=== PATIENT | male | born 1980 | race Caucasian/White ===

== ENCOUNTER 2017-01-14 01:10 | Emergency (ER) | payer SELFPAY ==
[2017-01-14 01:30] LABS: HEMATOCRIT 48.6 % (42.0-52.0); HEMOGLOBIN 16.4 gm/dl (14.0-18.0); MEAN CELL VOLUME 90.2 fl (81-97); MEAN CORPUSCULAR HEMOGLOBIN 30.4 pg (27-33); MEAN CORPUSCULAR HGB CONC 33.7 g/dl (32-36); PLATELET COUNT 303 K/uL (130-400); RED BLOOD COUNT 5.39 M/uL (4.40-5.70); RED CELL DISTRIBUTION WIDTH 12.9 % (11.5-14.5); WHITE BLOOD COUNT W/O DIFF 10.2 K/uL (4.2-12.2)
[2017-01-14 01:33] LABS: ALB/GLOB RATIO 1.3 (1.1-1.8); ALBUMIN 4.8 gm/dL (3.5-5.0); ALKALINE PHOSPHATASE 76 U/L (38-126); ALT/SGPT 91 U/L (21-72); ANION GAP 14.5 (7-16); AST/SGOT 93 U/L (17-59); BILIRUBIN,TOTAL 0.57 mg/dL (0.2-1.3); BLOOD UREA NITROGEN 13 mg/dL (9-20); CARBON DIOXIDE 21.5 mmol/L (22-30); CREATINE PHOSPHOKINASE 175 U/L (55-170); EST GLOMERULAR FILTRATION RATE > 60 ml/min; GLUCOSE,RANDOM 143 mg/dL (70-110); TOTAL PROTEIN 8.5 gm/dL (6.3-8.2)
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
[2017-01-14] MEDS ORDERED: 0.9 % SODIUM CHLORIDE 1,000 ML BAG IV ONE (03:19)
[2017-01-14] MEDS ORDERED: CEFAZOLIN 1 Gram 1 GM/50 ML BAG IVPB ONE (03:37)
[2017-01-14] MEDS ORDERED: TOPICAL LIDOCAINE W/ EPI 5 ML TOP ONE (03:43)
[2017-01-14] MEDS ORDERED: ONDANSETRON HCL IV 4 MG/2 ML VIAL IVP ONE (03:56)
[2017-01-14] MEDS ORDERED: HYDROMORPHONE HCL 1 MG/ML CPJ IVP ONE (03:56)
[2017-01-14 05:12] LABS: URINE APPEARANCE CLEAR; URINE BILIRUBIN NEGATIVE (NEGATIVE); URINE BLOOD MODERATE (NEGATIVE); URINE COLOR YELLOW; URINE GLUCOSE (UA) NEGATIVE (NEGATIVE); URINE KETONE TRACE (NEGATIVE); URINE LEUKOCYTE ESTERASE NEGATIVE (NEGATIVE); URINE NITRITE NEGATIVE (NEGATIVE); URINE PROTEIN TRACE (NEGATIVE); URINE UROBILINOGEN 0.2 E.U./dL (0.20 - 1.00)
[2017-01-14 05:16] LABS: AMPHETAMINE SCREEN URINE NOT DETECTED; BARBITURATE SCREEN URINE NOT DETECTED; BENZODIAZEPINE SCREEN URINE NOT DETECTED; COCAINE SCREEN URINE NOT DETECTED; METHADONE SCREEN URINE NOT DETECTED; METHAMPHETAMINE SCREEN NOT DETECTED; OPIATE SCREEN URINE NOT DETECTED; OXYCODONE SCREEN URINE NOT DETECTED; PHENCYCLIDINE SCREEN URINE NOT DETECTED; PROPOXYPHENE SCREEN URINE NOT DETECTED; THC SCREEN URINE NOT DETECTED; TRICYCLIC ANTIDEPRESSANT SCRN NOT DETECTED
[2017-01-14 05:22] LABS: URINE EPITHELIAL CELLS NONE SEEN (FEW); URINE WBC 0 - 2 (0-2/hpf)
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
== END 2017-01-14 05:24 | disposition short-term general hospital (02) ==
LOC: ER 01:10
DX: S01.121A Laceration with foreign body of right eyelid and periocular area, initial encounter (principal); S01.421A Laceration with foreign body of right cheek and temporomandibular area, initial encounter; S01.22XA Laceration with foreign body of nose, initial encounter; S01.521A Laceration with foreign body of lip, initial encounter; S61.022A Laceration with foreign body of left thumb without damage to nail, initial encounter; S31.812A Laceration with foreign body of right buttock, initial encounter; S41.122A Laceration with foreign body of left upper arm, initial encounter; S40.811A Abrasion of right upper arm, initial encounter; S80.812A Abrasion, left lower leg, initial encounter; S80.811A Abrasion, right lower leg, initial encounter; S60.512A Abrasion of left hand, initial encounter; S60.511A Abrasion of right hand, initial encounter; S30.810A Abrasion of lower back and pelvis, initial encounter; M54.2 Cervicalgia; F10.129 Alcohol abuse with intoxication, unspecified; Y90.7 Blood alcohol level of 200-239 mg/100 ml; V28.4XXA Motorcycle driver injured in noncollision transport accident in traffic accident, initial encounter; Y92.410 Unspecified street and highway as the place of occurrence of the external cause
CPT/HCPCS: 12056 ×2; 12041 ×2; 99285 ×2; 96365; 96375; 82550; 80053; 81001; 80305; 85027; 73080; 72125; 71260; 70450; 70486; 74177; G0480; Q9967; J2405; J0690; J1170; 80320; J7030